=== PATIENT | female | born 1980 | race Asian ===

== ENCOUNTER 2017-10-21 08:00 | Outpatient (CLI) | payer OTHER | END 2017-10-21 08:01 | disposition home or self-care (01) | LOC: LAB.WCP 08:00 | PROVIDERS: ATTEND Family Medicine | DX: R31.9 Hematuria, unspecified (principal) | CPT/HCPCS: 87086 ==

== ENCOUNTER 2018-02-08 15:00 | Outpatient (CLI) | payer OTHER | END 2018-02-08 15:01 | disposition home or self-care (01) | LOC: LAB.R 15:00 | PROVIDERS: ATTEND Physician Assistant Medical | DX: R31.9 Hematuria, unspecified (principal) | CPT/HCPCS: 87077; 87086; 87181 ==

== ENCOUNTER 2018-03-01 11:40 | Outpatient (CLI) | payer OTHER ==
[2018-03-01 18:52] LABS: BILIRUBIN,URINE NEGATIVE (NEGATIVE); GLUCOSE, URINE (UA) NEGATIVE (NEGATIVE); KETONES,URINE (UA) NEGATIVE (NEGATIVE); LEUKOCYTE ESTERASE, URINE NEGATIVE (NEGATIVE); NITRITE,URINE NEGATIVE (NEGATIVE); OCCULT BLOOD,URINE TRACE-LYSE (NEGATIVE); PROTEIN,URINE NEGATIVE (NEGATIVE); UROBILINOGEN,URINE 0.2 (NORMAL) E.U./dL (NORMAL)
[2018-03-01 18:54] LABS: CLARITY,URINE CLEAR (CLEAR)
[2018-03-01 19:16] LABS: BACTERIA,URINE Few /HPF (None Seen); RBC,URINE 0-5 /HPF (0-5); SQUAMOUS EPITHELIAL CELL,UR FEW Squamous (<= Few)
== END 2018-03-01 11:41 | disposition home or self-care (01) ==
LOC: LAB.WCP 11:40
PROVIDERS: ATTEND Physician Assistant Medical
DX: R31.9 Hematuria, unspecified (principal)
CPT/HCPCS: 81001; 87086

== ENCOUNTER 2018-03-12 09:37 | Outpatient (CLI) | payer OTHER ==
[2018-03-12] MEDS ORDERED: IOPAMIDOL-300 100 ML VIAL ONE (09:51)
[2018-03-12] MEDS ORDERED: IOPAMIDOL-300 100 ML VIAL IVP ONE (10:18)
--- NOTE | 2018-03-12 15:21 | CT Report ---
Procedure Date: 03/12/2018 Accession Number: [id number] / [id number] Procedure: CT - IVP CPT Code: FULL RESULT: EXAM: CT ABDOMEN AND PELVIS WITHOUT AND WITH CONTRAST (CT IVP) EXAM DATE: 03/12/2018 10:33 AM. CLINICAL HISTORY: HEMATURIA. COMPARISONS: Ultrasound pelvis 10/09/2015, CT abdomen and pelvis 07/02/2012. TECHNIQUE: Routine helical imaging was performed through the kidneys, ureters and bladder in the precontrast and split bolus postcontrast phases. IV Contrast: 100 cc Isovue-300. Reconstructions: Coronal and sagittal. In accordance with CT protocol optimization, one or more of the following dose reduction techniques were utilized for this exam: automated exposure control, adjustment of mA and/or KV based on patient size, or use of iterative reconstructive technique. FINDINGS: Lung Bases: Unremarkable. Right Kidney/Ureter: No stones, hydronephrosis, or masses. Left Kidney/Ureter: No stones, hydronephrosis, or masses. Other Solid Organs: The liver, spleen, pancreas, gallbladder, and adrenal glands are unremarkable.The bile ducts are unremarkable. Peritoneal Cavity/Bowel: Normal. No free fluid, free air or adenopathy. No masses. Bowel loops are unremarkable. Pelvic Organs: No bladder stones, obstruction or masses. The uterus is not clearly identified and likely is surgically absent. No adnexal masses are identified. Vasculature: Small bilateral pelvic phleboliths. Otherwise unremarkable. Bones: Normal. Other: None. IMPRESSION: Normal CT IVP. No urinary tract masses, stones or obstruction. RADIA
== END 2018-03-12 09:38 | disposition home or self-care (01) ==
LOC: DI 09:37
PROVIDERS: ATTEND Family Medicine
DX: R31.9 Hematuria, unspecified (principal)
CPT/HCPCS: 74178; Q9967

== ENCOUNTER 2018-11-30 08:00 | Outpatient (CLI) | payer BC, OTHER | END 2018-11-30 23:59 | disposition home or self-care (01) | LOC: LAB.WCP 08:00 | PROVIDERS: ATTEND Physician Assistant Medical | DX: N39.0 Urinary tract infection, site not specified (principal) | CPT/HCPCS: 87086 ==

== ENCOUNTER 2019-03-29 16:27 | Outpatient (CLI) | payer BC ==
[2019-03-29] MEDS ORDERED: IOVERSOL 320 100 ML VIAL IVP ONE ×2 (16:41→17:38)
--- NOTE | 2019-03-29 18:36 | CT Report ---
Reason: CERVICAL LYMPADENOPATHY Procedure Date: 03/29/2019 Accession Number: [id number] / [id number] Procedure: CT - SOFT TISSUE NECK W CPT Code: FULL RESULT: EXAM: CT SOFT TISSUE NECK WITH CONTRAST. EXAM DATE: 03/29/2019 04:52 PM. HISTORY: Cervical lymphadenopathy, left side of neck. COMPARISONS: Prior CT facial bones 06/12/2009. TECHNIQUE: Routine soft tissue neck CT protocol. Reconstructions: Coronal and sagittal. IV contrast: OPTI 320 80ML. In accordance with CT protocol optimization, one or more of the following dose reduction techniques were utilized for this exam: automated exposure control, adjustment of mA and/or KV based on patient size, or use of iterative reconstructive technique. Findings: Relevant images are indicated (image number, series number). Multiple enlarged posterior left cervical chain nodes are present extending from near the skull base to the supraclavicular fossa, no necrotic adenopathy seen. The remaining soft tissue neck negative, vallecula clear, epiglottis unremarkable, piriform sinuses clear, larynx unremarkable, thyroid unremarkable. Limited evaluation lung apices are unremarkable. Upper esophagus negative. There is a left submandibular gland, the right submandibular gland is fatty replaced. Oral cavity negative, bilateral parotid glands are unremarkable. Limited evaluation intracranial contents negative. Orbital contents negative. Mastoid air cells, paranasal sinuses are clear. Skull base intact. Dentition intact, no apical cyst. Cervical spine, upper thoracic spine negative. Impressions: 1. Multiple enlarged reactive appearing left posterior cervical chain nodes beginning near the skull base extending to the supraclavicular fossa without necrotic adenopathy. Most likely consider infectious, inflammatory process. Remaining soft tissue neck negative as detailed. RADIA
== END 2019-03-29 16:28 | disposition home or self-care (01) ==
LOC: DI 16:27
PROVIDERS: ATTEND Physician Assistant Medical
DX: R59.0 Localized enlarged lymph nodes (principal)
CPT/HCPCS: 70491; Q9967

== ENCOUNTER 2019-12-22 10:28 | Outpatient (CLI) | payer BC ==
--- NOTE | 2019-12-22 11:22 | XRAY Report ---
Reason: RIGHT SHOULDER PAIN Procedure Date: 12/22/2019 Accession Number: [id number] / [id number] Procedure: WCP - Shoulder 2 View RT CPT Code: Final Report FULL RESULT: EXAM: RIGHT SHOULDER RADIOGRAPHY EXAM DATE: 12/22/2019 10:47 AM. CLINICAL HISTORY: RIGHT SHOULDER PAIN. COMPARISON: None. TECHNIQUE: 3 views. FINDINGS: Bones: Normal. No fracture or bone lesion. Joints: The glenohumeral and acromioclavicular joints are normal. Soft tissues: The visualized hemithorax is unremarkable. No soft tissue swelling. IMPRESSION: Negative shoulder radiography. RADIA
== END 2019-12-22 23:59 | disposition home or self-care (01) ==
LOC: DI.WCP 10:28
PROVIDERS: ATTEND Family Medicine
DX: M25.511 Pain in right shoulder (principal)

== ENCOUNTER 2020-06-11 07:22 | Outpatient (CLI) | payer BC ==
[2020-06-11 12:31] LABS: BASOPHILS % (AUTO) 0.8 %; EOSINOPHILS % (AUTO) 0.8 %; HGB - HEMOGLOBIN 12.4 g/dL (12.0-16.0); LYMPHOCYTES # (AUTO) 2.1 10^3/uL (1.5-3.5); LYMPHOCYTES % (AUTO) 45.3 %; MEAN CORPUSCULAR HEMOGLOBIN 30.9 pg (27.0-31.0); MEAN CORPUSCULAR HGB CONC 31.8 g/dL (32.0-36.0); MEAN CORPUSCULAR VOLUME 97.3 fL (81.0-99.0); MEAN PLATELET VOLUME 8.7 fL (7.9-10.8); MONOCYTES # (AUTO) 0.4 10^3/uL (0.0-1.0); MONOCYTES % (AUTO) 7.8 %; NEUTROPHILS # (AUTO) 2.1 10^3/uL (1.5-6.6); NEUTROPHILS % (AUTO) 44.9 %; PLT - PLATELET COUNT 258 10^3/uL (130-450); RED BLOOD COUNT 4.01 10^6/uL (4.20-5.40); RED CELL DISTRIBUTION WIDTH 12.3 % (12.0-15.0); WHITE BLOOD COUNT 4.7 x10^3/uL (4.8-10.8)
[2020-06-11 12:33] LABS: ALBUMIN 4.4 g/dL (3.2-5.5); ALBUMIN/GLOBULIN RATIO 1.4 (1.0-2.2); ALKALINE PHOSPHATASE 56 IU/L (42-121); ALT ALANINE AMINOTRANSFERASE 23 IU/L (10-60); AST ASPARTATE AMINOTRANSFERASE 19 IU/L (10-42); BILIRUBIN,TOTAL 0.9 mg/dL (0.2-1.0); BUN - BLOOD UREA NITROGEN 13 mg/dL (6-20); CALCIUM 9.1 mg/dL (8.5-10.3); CARBON DIOXIDE - CO2 24 mmol/L (21-32); CHLORIDE 108 mmol/L (101-111); CHOLESTEROL 188 mg/dL; CREATININE 0.7 mg/dL (0.4-1.0); GLUCOSE 98 mg/dL (70-100); HDL CHOLESTEROL 63 mg/dL; LDL CHOLESTEROL,CALCULATED 107 mg/dL; LDL/HDL RATIO 1.7 (<4.4); SODIUM 140 mmol/L (135-145); TOTAL PROTEIN 7.6 g/dL (6.7-8.2); VLDL CHOLESTEROL 18 mg/dL
== END 2020-06-11 23:59 | disposition home or self-care (01) ==
LOC: LAB.WCP 07:22
PROVIDERS: ATTEND Physician Assistant Medical
DX: Z00.00 Encounter for general adult medical examination without abnormal findings (principal)
CPT/HCPCS: 36415; 80053; 80061; 83721; 84443; 85025

== ENCOUNTER 2020-10-25 08:00 | Outpatient (CLI) | payer BC | END 2020-10-25 23:59 | disposition home or self-care (01) | LOC: LAB.WCP 08:00 | PROVIDERS: ATTEND Physician Assistant Medical | DX: R30.0 Dysuria (principal) | CPT/HCPCS: 87086 ==

== ENCOUNTER 2021-02-21 16:12 | Outpatient (CLI) | payer BC ==
--- NOTE | 2021-02-22 01:11 | XRAY Report ---
PROCEDURE: Lumbar Spine Complete INDICATIONS: LOW BACK PAIN, CHRONIC TECHNIQUE: 4 views of the lumbar spine were acquired. COMPARISON: None. FINDINGS: Bones: 5 [id number] vertebrae are present. There is normal bony alignment. No acute vertebral body compression fractures. No suspicious bony lesions. No pars defects noted. Mild lower lumbar s pondylosis at L4-5 and L5-S1. Soft tissues: Overlying bowel gas pattern is normal. No suspicious soft tissue calcifications. IMPRESSION: Mild lower lumbar spondylosis. No acute osseous abnormalities of the lumbar spine. No ev idence for pars defects. Reviewed by: Bubba Carter MD on 02/22/2021 1:10 AM PDT Approved by: Bubba Carter MD on 02/22/2021 1:10 AM PDT Station ID: [id number]
--- NOTE | 2021-02-22 01:13 | XRAY Report ---
PROCEDURE: Hips 3-4V BILAT INDICATIONS: HIP PAIN, RIGHT TECHNIQUE: 3 views of the hip were acquired. COMPARISON: None FINDINGS: Bones: No fractures or dislocations. No suspicious bony lesions. The visualized pelvic ring appear s intact. No suspicious degenerative change. On the AP upright view of the pelvis, the superior shayy in of the right hip is oriented more cephalad relative to the left hip. Soft tissues: No suspicious soft tissue calcifications or masses. IMPRESSION: Bilateral hip without acute osseous abnormalities. No significant degenerative changes seen. There is slight tilt of the pelvis secondary to possible leg length discrepancy between the right and left lo wer extremities. Reviewed by: Bubba Carter MD on 02/22/2021 1:12 AM PDT Approved by: Bubba Carter MD on 02/22/2021 1:12 AM PDT Station ID: [id number]
--- NOTE | 2021-02-22 01:16 | XRAY Report ---
PROCEDURE: Bone Length Study INDICATIONS: LEG LENGTH DISCREPENCY TECHNIQUE: A single frontal standing view of both lower extremities acquired, with measuring ruler s ituated between the legs. COMPARISON: None. FINDINGS: Right: Total leg length is 82.1 cm. AP view of the pelvis and right lower extremity demonstrates no suspicious osseous lesions, abnormal periosteal reaction, or fractures. There is asymmetric tilting of the pelvis with the right iliac crest being higher than the left. Left: Total leg length is 80.1 cm. AP view of the pelvis and left lower extremity demonstrates no s uspicious osseous lesions, abnormal periosteal reaction, or fractures. There is asymmetric tilting of the pelvis with the left iliac crest being lower than the right side. IMPRESSION: Leg length discrepancy of the bilateral lower extremities with the right leg measuring 82.1 cm and th e left leg measuring 80.1 cm. Reviewed by: Bubba Carter MD on 02/22/2021 1:15 AM PDT Approved by: Bubba Carter MD on 02/22/2021 1:15 AM PDT Station ID: [id number]
== END 2021-02-21 16:13 | disposition home or self-care (01) ==
LOC: DI.N 16:12
PROVIDERS: ATTEND Family Medicine
DX: M47.816 Spondylosis without myelopathy or radiculopathy, lumbar region (principal); M47.817 Spondylosis without myelopathy or radiculopathy, lumbosacral region; M21.70 Unequal limb length (acquired), unspecified site

== ENCOUNTER 2021-08-29 08:00 | Outpatient (CLI) | payer BC | END 2021-08-29 23:59 | LOC: LAB.N 08:00 | PROVIDERS: ATTEND Physician Assistant | DX: R30.0 Dysuria (principal) | CPT/HCPCS: 87086; 87181 ==

== ENCOUNTER 2022-07-18 11:12 | Outpatient (CLI) | payer BC ==
--- NOTE | 2022-07-20 14:19 | MRI Report ---
PROCEDURE: LUMBAR SPINE WO INDICATIONS: SCOLIOSIS, LOW BACK PAIN TECHNIQUE: Noncontrast sagittal T1 spin echo and T2 fast echo, sagittal STIR, axial T1 and T2 fast spin echo thr ough the lumbar spine. In cases with scoliosis, additional coronal T2 fast spin echo may be performe d. COMPARISON: Plain films of the lumbar spine dated 02/21/2021 FINDINGS: Image quality: Excellent. Alignment and Curvature: 5 lumbar type vertebral present by plain film. There is loss of normal lumba r lordosis. Bone Marrow: Marrow is of normal overall signal. No acute vertebral body compression fractures. Min imal reactive signal throughout the endplates of the lumbar spine. Spinal Cord: Conus medullaris terminates at the mid L2 level. Visualized cord demonstrates normal s ignal and size. Paraspinous Soft Tissues: No paravertebral masses. T12-L1: Normal in appearance. L1-L2: Mild disc height loss and desiccation. Mild diffuse disc bulge. Mild facet and ligament fla vum hypertrophy. Mild canal stenosis. No foraminal stenosis. L2-L3: Mild disc height loss and desiccation. Mild diffuse disc bulge. Mild facet and ligament fla vum hypertrophy. Mild epidural lipomatosis. Mild canal stenosis. Mild bilateral foraminal stenosis. L3-L4: Mild diffuse disc bulge. Mild disc desiccation. Mild facet and ligament flavum hypertrophy. Mild epidural lipomatosis. Mild canal stenosis. No foraminal stenosis. L4-L5: Mild disc desiccation and diffuse disc bulge. Mild bilateral facet and ligament flavum hyper trophy. Mild canal stenosis. Mild bilateral foraminal stenosis. L5-S1: Mild disc height loss and desiccation. Mild diffuse disc bulge with small superimposed left paracentral protrusion. Mild facet and ligament flavum hypertrophy. Mild canal stenosis. Moderate syeda ateral foraminal stenosis. Mild posterior deviation of the left S1 nerve root within the lateral rece ss. IMPRESSION: 1. Multilevel degenerative disc and facet disease, in addition to epidural lipomatosis and ligamentum flavum hypertrophy. 2. Mild multilevel canal stenoses. 3. Multilevel foraminal stenoses, worst at L5-S1 where there are moderate foraminal stenoses. 4. Mild posterior deviation of the left S1 nerve root within the lateral recess at L5-S1. Recommend c orrelation with clinical symptoms to ascertain relevance of this finding. Reviewed by: Lety Jimenez MD on 07/20/2022 2:18 PM PST Approved by: Lety Jimenez MD on 07/20/2022 2:18 PM PST Station ID: [id number]
== END 2022-07-18 11:13 | disposition home or self-care (01) ==
LOC: DI 11:12
PROVIDERS: ATTEND Physician Assistant Medical
DX: E88.2 Lipomatosis, not elsewhere classified (principal); M51.36 Other intervertebral disc degeneration, lumbar region; M48.061 Spinal stenosis, lumbar region without neurogenic claudication; M47.816 Spondylosis without myelopathy or radiculopathy, lumbar region; M51.37 Other intervertebral disc degeneration, lumbosacral region; M48.07 Spinal stenosis, lumbosacral region; M47.817 Spondylosis without myelopathy or radiculopathy, lumbosacral region; M51.27 Other intervertebral disc displacement, lumbosacral region

== ENCOUNTER 2022-11-18 17:17 | Outpatient (CLI) | payer BC ==
--- NOTE | 2022-11-19 12:53 | XRAY Report ---
PROCEDURE: Cervical Spine 2 View INDICATIONS: CERVICAL RADICULOPATHY TECHNIQUE: 3 view(s) of the cervical spine were acquired. COMPARISON: None. FINDINGS: Bones: No fractures or dislocations to the C7 level. The lateral masses of C1 appear intact on the odontoid view. Straightening of the normal cervical lordosis, a finding which can be seen in the set ting of muscle strain and/or spasm. Mild multilevel degenerative changes with disc height loss, endpl ate spurring, and facet arthropathy. Soft tissues: No prevertebral soft tissue swelling. IMPRESSION: Mild degenerative changes of the cervical spine. Reviewed by: Addy Adan MD on 11/19/2022 12:52 PM PDT Approved by: Addy Adan MD on 11/19/2022 12:52 PM PDT Station ID: [id number]
== END 2022-11-18 17:18 | disposition home or self-care (01) ==
LOC: DI 17:17
PROVIDERS: ATTEND Physician Assistant Medical
DX: M47.812 Spondylosis without myelopathy or radiculopathy, cervical region (principal)

== ENCOUNTER 2023-02-12 07:53 | Outpatient (CLI) | payer BC ==
[2023-02-12 12:17] LABS: BASOPHILS % (AUTO) 0.6 %; EOSINOPHILS % (AUTO) 0.6 %; HCT - HEMATOCRIT 37.5 % (37.0-47.0); HGB - HEMOGLOBIN 12.2 g/dL (12.0-16.0); LYMPHOCYTES # (AUTO) 2.2 10^3/uL (1.5-3.5); LYMPHOCYTES % (AUTO) 42.4 %; MEAN CORPUSCULAR HEMOGLOBIN 30.9 pg (27.0-31.0); MEAN CORPUSCULAR HGB CONC 32.5 g/dL (32.0-36.0); MEAN CORPUSCULAR VOLUME 94.9 fL (81.0-99.0); MEAN PLATELET VOLUME 8.9 fL (7.9-10.8); MONOCYTES # (AUTO) 0.4 10^3/uL (0.0-1.0); MONOCYTES % (AUTO) 8.1 %; NEUTROPHILS # (AUTO) 2.5 10^3/uL (1.5-6.6); NEUTROPHILS % (AUTO) 48.1 %; PLT - PLATELET COUNT 314 10^3/uL (130-450); RED BLOOD COUNT 3.95 10^6/uL (4.20-5.40); RED CELL DISTRIBUTION WIDTH 12.3 % (12.0-15.0); WHITE BLOOD COUNT 5.2 x10^3/uL (4.8-10.8)
[2023-02-12 12:43] LABS: BILIRUBIN,URINE NEGATIVE (NEGATIVE); GLUCOSE, URINE (UA) NEGATIVE (NEGATIVE); KETONES,URINE (UA) NEGATIVE (NEGATIVE); LEUKOCYTE ESTERASE, URINE NEGATIVE (NEGATIVE); NITRITE,URINE NEGATIVE (NEGATIVE); OCCULT BLOOD,URINE SMALL (NEGATIVE); PH,URINE 5.5 PH (5.0-7.5); PROTEIN,URINE NEGATIVE (NEGATIVE); UROBILINOGEN,URINE 0.2 (NORMAL) E.U./dL (NORMAL)
[2023-02-12 12:45] LABS: ALBUMIN 4.2 g/dL (3.2-5.5); ALBUMIN/GLOBULIN RATIO 1.2 (1.0-2.2); ALKALINE PHOSPHATASE 65 IU/L (42-121); ALT ALANINE AMINOTRANSFERASE 24 IU/L (10-60); AST ASPARTATE AMINOTRANSFERASE 24 IU/L (10-42); BILIRUBIN,TOTAL 0.7 mg/dL (0.2-1.0); BUN - BLOOD UREA NITROGEN 13 mg/dL (6-20); CARBON DIOXIDE - CO2 26 mmol/L (21-32); CHLORIDE 103 mmol/L (101-111); CHOL/HDL RATIO 3.7 (<4.4); CHOLESTEROL 221 mg/dL; CREATININE 0.9 mg/dL (0.4-1.0); GFR - MDRD 68 (>89); GLUCOSE 125 mg/dL (70-100); HDL CHOLESTEROL 60 mg/dL; LDL CHOLESTEROL,CALCULATED 146 mg/dL; LDL/HDL RATIO 2.4 (<4.4); POTASSIUM 3.7 mmol/L (3.5-5.0); SODIUM 138 mmol/L (135-145); THYROID STIMULATING HORMONE 1.2 uIU/mL (0.34-5.60); TOTAL PROTEIN 7.7 g/dL (6.7-8.2); TRIGLYCERIDES 74 mg/dL; VLDL CHOLESTEROL 15 mg/dL
[2023-02-12 12:48] LABS: AMORPHOUS SEDIMENT,UR Moderate /LPF; BACTERIA,URINE Moderate /HPF (None Seen); CLARITY,URINE CLOUDY (CLEAR); SQUAMOUS EPITHELIAL CELL,UR MOD Squamous (<= Few); WBC,URINE 0-3 /HPF (0-5)
[2023-02-15 12:22] LABS: ESTIMATED AVERAGE GLUCOSE 131 mg/dL (70-100); HEMOGLOBIN A1c% 6.2 % (4.27-6.07)
== END 2023-02-12 07:54 | disposition home or self-care (01) ==
LOC: LAB.N 07:53
PROVIDERS: ATTEND Physician Assistant Medical
DX: I10 Essential (primary) hypertension (principal); R73.01 Impaired fasting glucose
CPT/HCPCS: 36415; 80053; 80061; 81001; 83036; 83721; 84443; 85025

== ENCOUNTER 2023-03-04 16:24 | Outpatient (CLI) | payer BC ==
--- NOTE | 2023-03-05 09:09 | MRI Report ---
PROCEDURE: CERVICAL SPINE WO INDICATIONS: CERVICAL RADICULOPATHY TECHNIQUE: Noncontrast sagittal T1 spin echo and T2 fast spin echo, sagittal STIR, foraminal oblique sagittal T2 fast spin echo, and axial gradient echo or T2 fast spin echo through the cervical spine. COMPARISON: None. FINDINGS: Image quality: Excellent. Alignment and Curvature: There is normal bony alignment. Bone Marrow: Marrow demonstrates normal overall signal. Spinal Cord: Visualized spinal cord has normal size and signal. No cerebellar tonsillar herniation. Paraspinous Soft Tissues: No paravertebral masses. Prevertebral soft tissues are normal in thicknes s. C2-C3: Mild right facet hypertrophy. No canal stenosis or foraminal stenosis. C3-C4: Disc bulge. Prominent left facet hypertrophy. No canal stenosis. Severe left foraminal narro wing with left foraminal C4 nerve root impingement. C4-C5: Small focal central posterior disc protrusion mildly indenting on the cord. No canal stenosis . Prominent right facet hypertrophy. Moderate to severe right foraminal narrowing with a degree of ri ght foraminal C5 nerve root impingement. C5-C6: Relatively small shallow central posterior disc extrusion with extruded disc material extendi ng slightly superiorly relative to the disc space. There is indentation on the cord. No canal stenosi s. AP diameter of the canal is 10.6 mm. No significant foraminal narrowing. C6-C7: There is a central posterior disc protrusion with large high signal associated extruded disc fragment which extends from the mid to upper C6 level to the mid C7 level. It indents on the cord. AP diameter of the canal is 6.5 mm. Extruded disc material measures approximately 1.6 x 0.8 x 0.4 cm. T he high signal suggests acuity. The foramina are patent. C7-T1: No canal stenosis. Bilateral moderate to severe foraminal narrowing secondary to facet hypert rophy and a right uncovertebral joint osteophyte. IMPRESSION: 1. At C6-C7, there is central posterior disc protrusion with a large acute extruded disc fragment sig nificantly impinging on the cord, with resultant severe canal stenosis. AP diameter of the canal is 6 .5 mm. 2. There is a shallow central posterior disc extrusion at C5-C6 without canal stenosis. 3. There is multilevel facet arthropathy. This contributes to severe left foraminal narrowing at C3-C 4, and moderate to severe right foraminal narrowing at C4-C5, as well as bilateral moderate to severe foraminal narrowing at C7-T1. Reviewed by: Cm Damon MD on 03/05/2023 9:08 AM PDT Approved by: Cm Damon MD on 03/05/2023 9:08 AM PDT Station ID: [id number]
== END 2023-03-04 16:25 | disposition home or self-care (01) ==
LOC: DI 16:24
PROVIDERS: ATTEND Physician Assistant Medical
DX: M50.223 Other cervical disc displacement at C6-C7 level (principal); M50.222 Other cervical disc displacement at C5-C6 level; M47.812 Spondylosis without myelopathy or radiculopathy, cervical region; M48.02 Spinal stenosis, cervical region

== ENCOUNTER 2023-12-24 08:47 | Day surgery (SDC) | payer BC ==
[2023-12-24] MEDS: LACTATED RINGERS 1,000 ML IV ONE ×2 (08:57→10:54)
--- NOTE | 2023-12-24 09:22 | ANESTHESIA ---
Pre-Anesthesia VS, & Labs - Diagnosis cancer screening - Procedure colonoscopy Vital Signs: Temp Pulse Resp BP Pulse Ox O2 Flow Rate 36.0 C L 85 16 111/77 100 12/24/23 09:06 12/24/23 09:06 12/24/23 09:06 12/24/23 09:06 12/24/23 09:06 Height: 5 ft 5 in Weight (kg): 79.38 kg Body Mass Index: 29.1 BMI Classification: Overweight - NPO >8 hours Last Fluid Intake: am prep - Is Patient ?: No - Lab Results Lab results reviewed: Yes Home Medications and Allergies Home Medications: Ambulatory Orders Semaglutide [Wegovy] 2.4 mg SQ OAW 12/24/23 Semaglutide [Wegovy] 2.4 mg SQ OAW 12/24/23 Allergies/Adverse Reactions: Allergies Allergy/AdvReac Type Severity Reaction Status Date / Time No Known Drug Allergies Allergy Verified 12/24/23 09:06 Anes History & Medical History - Anesthetic History Anesthesia Complications: reports: No previous complications Family history of Anesthesia Complications: Denies Family history of Malignant Hyperthermia: Denies - Medical History Cardiovascular: reports: None Pulmonary: reports: None Gastrointestinal: reports: None Urinary: reports: None Musculoskeletal: reports: Other Endocrine/Autoimmune: reports: None Skin: reports: None Smoking Status: Never smoker - Surgical History Gynecologic: reports: Tubal ligation, Other Orthopedic: reports: Shoulder arthroplasty, Carpal Tunnel surgery, Other Exam General: Alert, Oriented x3 Dental: WNL Mouth Openin Fingerbreadth Neck Mobility: Normal Mallampati classification: II Respiratory: Lungs clear, Normal breath sounds Cardiovascular: Regular rate Neurological: Normal speech Mental/Cognitive Status: Alert/Oriented X3, Normal for patient Cognitive Status: Within normal limits Plan Anesthesia Type: Total IV Consent for Procedure(s) Verified and Reviewed: Yes Code Status: Attempt Resuscitation ASA classification: 2-Mild systemic disease Is this case an emergency?: No
[2023-12-24] MEDS ORDERED: MIDAZOLAM 2 MG/2 ML VIAL ONE (10:09)
[2023-12-24] MEDS ORDERED: PROPOFOL 500 MG/50 ML 500 MG/50 ML VIAL ONE (10:10)
--- NOTE | 2023-12-24 10:25 | HISTORY & PHYSICAL EXAMINATION ---
Chief Complaint - Chief Complaint Chief Complaint: here for colonoscopy History of Present Illness - History Obtained From Records Reviewed: yes History obtained from: pt Exam Limitations: none - History of Present Illness HPI Comment/Other: here for colon cancer screening. no gi problems, no fhx colon ca, no anemia. History - Past Medical History Cardiovascular: reports: None Respiratory: reports: None Endocrine/Autoimmune: reports: None GI: reports: None : reports: None HEENT: reports: None Psych: reports: None Musculoskeletal: reports: Other Derm: reports: None MRSA Hx?: No - Past Surgical History Ortho: reports: Shoulder arthroplasty, Carpal Tunnel surgery, Other /MACHINE MAINTENANCE: reports: Tubal ligation, Other Meds/Allgy - Home Medications Home Medications: Ambulatory Orders Medication Instructions Recorded Confirmed Semaglutide [Wegovy] 2.4 mg SQ OAW 12/24/23 12/24/23 - Allergies Allergies/Adverse Reactions: Allergies Allergy/AdvReac Type Severity Reaction Status Date / Time No Known Drug Allergies Allergy Verified 12/24/23 09:06 Review of Systems - Other Findings Other Findings: 10 pt ros as above otherwise unremarkable Exam - Vital Signs Vital Signs: Vital Signs x48h Temp Pulse Resp BP Pulse Ox 12/24/23 09:06 36.0 C L 85 16 111/77 100 - Physical Exam General Appearance: positive: No acute distress, Alert Eyes Bilateral: positive: PERRL, EOMI ENT: positive: No signs of dehydration Neck: positive: No JVD Respiratory: positive: No respiratory distress Cardiovascular: positive: Regular rate & rhythm Abdomen: positive: No distention Neurologic/Psychiatric: positive: Oriented x3 Conclusion/Plan - Lab Results Lab results reviewed: Yes
[2023-12-24] MEDS ORDERED: LIDOCAINE-PF 2% 10 ML AMP SUBQ ONE (10:29)
--- NOTE | 2023-12-24 10:58 | ANESTHESIA POST OP EVALUATION ---
Anesthesia Post Eval - Post Anesthesia Eval Vitals: Last Vital Signs Temp 36.7 C 12/24/23 10:53 Pulse 79 12/24/23 10:53 Resp 16 12/24/23 10:53 BP 95/57 L 12/24/23 10:53 Pulse Ox 98 12/24/23 10:53 O2 Flow Rate CV Function Including HR & BP: Stable Pain Control: Satisfactory Nausea & Vomiting: Negative Mental Status: Baseline Respiratory Status: Airway Patent Hydration Status: Satisfactory Anesthesia Complications: None
[2023-12-24 11:07] VITALS: O2SAT 99
[2023-12-24 11:17] VITALS: BP 92/53
== END 2023-12-24 08:48 | disposition home or self-care (01) ==
LOC: SDS 08:47
PROVIDERS: ATTEND Surgery
PROC: 0DBN8ZX Excision of Sigmoid Colon, Via Natural or Artificial Opening Endoscopic, Diagnostic (ICD-10-PCS; principal; 2023-12-24 10:30)
DX: Z12.11 Encounter for screening for malignant neoplasm of colon (principal); D12.5 Benign neoplasm of sigmoid colon
CPT/HCPCS: 45380; J7120

== ENCOUNTER 2024-03-10 08:17 | Outpatient (CLI) | payer BC ==
[2024-03-10 11:55] LABS: CHOL/HDL RATIO 2.9 (<4.4); CHOLESTEROL 183 mg/dL; GLUCOSE 95 mg/dL (74-104); HDL CHOLESTEROL 63 mg/dL; LDL CHOLESTEROL,CALCULATED 109 mg/dL; LDL/HDL RATIO 1.7 (<4.4); TRIGLYCERIDES 53 mg/dL (48-352); VLDL CHOLESTEROL 11 mg/dL
[2024-03-10 12:11] LABS: THYROID STIMULATING HORMONE 1.33 uIU/mL (0.34-5.60)
== END 2024-03-10 08:18 | disposition home or self-care (01) ==
LOC: LAB.N 08:17
PROVIDERS: ATTEND Physician Assistant Medical
DX: Z13.220 Encounter for screening for lipoid disorders (principal); Z13.1 Encounter for screening for diabetes mellitus; Z13.29 Encounter for screening for other suspected endocrine disorder
CPT/HCPCS: 36415; 80061; 82947; 83525; 83721; 84443